=== PATIENT | female | born 1935 | race Caucasian/White ===

== ENCOUNTER 2017-01-11 16:05 | Emergency (ER) | payer MEDICARE, BC ==
--- NOTE | 2017-01-11 16:57 | Emergency Department Record ---
History of Present Illness - General Chief Complaint: Cough Stated Complaint: COUGH Time Seen by Provider: 01/11/17 16:47 Source: Patient, Family Mode of Arrival: Wheelchair Limitations: No limitations - History of Present Illness Initial Comments: 81 yo female presents with a cough. The cough started about 3 days ago. She can feel phlegm come up but she has not spit any out. She is not short of breath. No chest pain, palpitations, fever, nausea, vomiting or diarrhea. No change in her baseline leg edema. She has a history of valve replacement. She saw her chinese instructor and surgeon both in the last week. She states they pleased with current cardiac status. She had and ECHO that she was told was normal. She did have a flu shot and pneumonia shot this year. The patient weighs herself daily. Her baseline weight goes between 196 and 202. She was 196 today. She has staniding instructions to call her chinese instructor if she gains 5 pounds or exceeds her baseline. PCP is Hoda, Cardologist is Chu. LINDSEY Complaint: Cough Onset/Timin -: Days(s) Severity: Moderate Consistency: Intermittent Improves With: Nothing Worsens With: Other (Phlegm) Context: Sick contacts Associated Symptoms: Denies other symptoms, Cough Treatments Prior to Arrival: None - Related Data Home Medications Medication Instructions Recorded Confirmed Last Taken Amiodarone HCl 200 mg PO DAILY #60 01/31/16 01/11/17 1 Day Ago Apixaban [Eliquis] 2.5 mg PO BID #60 01/31/16 01/11/17 1 Day Ago Atorvastatin Calcium 40 mg PO DAILY #90 01/31/16 01/11/17 1 Day Ago Cholecalciferol (Vitamin D3) 1,000 unit PO DAILY cap 01/31/16 01/11/17 1 Day Ago [Vitamin D3] Clopidogrel Bisulfate [Clopidogrel] 75 mg PO DAILY #30 01/31/16 01/11/17 1 Day Ago Enalapril Maleate 5 mg PO DAILY #90 01/31/16 01/11/17 1 Day Ago Fenofibrate Nanocrystallized 54 mg PO DAILY #90 01/31/16 01/11/17 1 Day Ago [Fenofibrate] Ferrous Sulfate [Iron] 325 mg PO DAILY tab 01/31/16 01/11/17 1 Day Ago Furosemide 20 mg PO ASDIR #90 01/31/16 01/11/17 1 Day Ago Hydrocodone/Acetaminophen 7.5 mg PO Q6H PRN #100 01/31/16 01/11/17 1 Day Ago [Hydrocodone/Acetaminophen 7.5mg/325mg] Nystatin 30 gm TOP DAILY PRN #30 01/31/16 01/11/17 1 Day Ago Omeprazole 20 mg PO DAILY #180 NS 01/31/16 01/11/17 1 Day Ago Potassium Bicarbonate/Cit AC 10 meq PO DAILY #90 01/31/16 01/11/17 1 Day Ago [Effer-K 10 Meq Tablet Eff] Sertraline HCl 50 mg PO DAILY #90 01/31/16 01/11/17 1 Day Ago Previous Rx's Medication Instructions Recorded Doxycycline Hyclate [Doxycycline] 100 mg PO BID #14 cap 01/11/17 Allergies Allergy/AdvReac Type Severity Reaction Status Date / Time No Known Allergies Allergy Intermediate PT UNSURE Verified 01/11/17 16:37 OF REACTION Travel Screening - Travel/Exposure Within Last 30 Days Have you traveled within the last 30 days?: No - Travel/Exposure Within Last Year Have you traveled outside the [place] in the last year?: No - Additonal Travel Details Have you been exposed to anyone with a communicable illness?: No - Travel Symptoms Symptom Screening: None Review of Systems Constitutional: Denies: Chills, Fever, Malaise, Night sweats, Weakness Eyes: Denies: Eye discharge, Eye pain, Photophobia, Vision change ENT: Reports: Congestion. Denies: Ear pain, Epistaxis, Throat pain Respiratory: Reports: Cough. Denies: Dyspnea, Hemoptysis, Stridor, Wheezes Cardiovascular: Reports: Edema (chronic, unchanged at baseline). Denies: Arrhythmia, Chest pain, Dyspnea on exertion, Palpitations, Syncope Endocrine: Denies: Fatigue, Polydipsia, Polyuria Gastrointestinal: Denies: Abdominal pain, Diarrhea, Nausea, Vomiting Genitourinary: Denies: Dysuria, Urgency Musculoskeletal: Denies: Arthralgia, Back pain, Joint swelling, Neck pain Skin: Denies: Bruising, Change in color, Rash Neurological: Denies: Confusion, Headache, Numbness, Weakness Psychiatric: Denies: Anxiety Hematological/Lymphatic: Denies: Blood Clots, Easy bleeding, Easy bruising, Swollen glands Past Medical History - SOCIAL HISTORY Smoking Status: Never smoker Alcohol Use: None Drug Use: None - RESPIRATORY Hx Respiratory Disorders: No Hx Sleep Apnea: Yes Hx of CPAP: Yes (not any more) - CARDIOVASCULAR Hx Cardio Disorders: Yes Hx Cardiac Cath: Yes Hx Hypertension: Yes - NEURO Hx Neuro Disorders: No - GI Hx GI Disorders: No - Hx Genitourinary Disorders: No - ENDOCRINE Hx Endocrine Disorders: No - MUSCULOSKELETAL Hx Musculoskeletal Disorders: Yes - PSYCH Hx Psych Problems: No - HEMATOLOGY/ONCOLOGY Hx Hematology/Oncology Disorders: Yes Hx Cancer: Yes (1997, 2003 breast) Hx Radiation Therapy: Yes Family Medical History Any Significant Family History?: Yes Physical Exam - General General Appearance: Alert, Oriented x3, Cooperative, No acute distress Limitations: No limitations - Head Head exam: Normal inspection - Eye Eye exam: Normal appearance, PERRL. negative: Conjunctival injection - ENT ENT exam: Normal exam, Mucous membranes moist, Normal orophraynx Ear exam: Normal external inspection. negative: External canal tenderness Nasal Exam: Discharge. negative: Normal inspection, Sinus tenderness Mouth exam: Normal external inspection, Tongue normal Teeth exam: Normal inspection. negative: Dental caries Throat exam: Normal inspection. negative: Tonsillar erythema, Tonsillar exudate - Neck Neck exam: Normal inspection, Full ROM. negative: Tenderness - Respiratory Respiratory exam: Rhonchi (few scattered mild rhonchi). negative: Normal lung sounds bilaterally, Accessory muscle use, Decreased breath sounds, Rales, Respiratory distress, Stridor, Wheezes - Cardiovascular Cardiovascular Exam: Regular rate, Normal rhythm, Normal heart sounds Peripheral Pulses: 2+: Radial (R), Radial (L) - Rectal Rectal exam: Deferred - exam: Deferred - Extremities Extremities exam: Normal inspection, Normal capillary refill, Pedal edema (mild , trace) - Back Back exam: Reports: Normal inspection, Full ROM. Denies: Muscle spasm, Rash noted, Tenderness - Neurological Neurological exam: Alert, Normal gait, Oriented X3, Reflexes normal - Psychiatric Psychiatric exam: Normal affect, Normal mood - Skin Skin exam: Dry, Intact, Normal color, Warm Course Vital Signs 01/11/17 16:26 Temperature 98.2 F Pulse Rate 73 Respiratory 18 Rate Blood Pressure 87/38 Pulse Ox 94 L - Reevaluation(s) Reevaluation #1: The ECHO was requested and recieved from [facility] Summary: moderate LVH, EF 40-45%, stage 1 diastolic dysfunction, moderate mitral calcification, +1 mitral regurge, midl Tricuspid insufficiency, lee- scatheter AVR in place, gradient abnormal for prosthetic AV. 01/11/17 17:04 Reevaluation #2: The patient appears well, non labored, with a mild cough with phlegm. Her BP was noted. She is on numerous medications that effect BP but she is asymptomatic here in the ED and by history at home. 01/11/17 17:07 Reevaluation #3: EKG Sinus rhythm, rate 69, Qt 486, axis left, LBBB, NS changes CW BBBB, no changes from prior 08/15/06 01/11/17 17:31 01/11/17 18:14 Reevaluation #4: The labs were reviewed. No acute changes on the CBC The BUN and CR are 47 and 1.1. These are near the base of 43 and 1.0 on December 21. CXR read was suggestive mild CHF no effusions, BNP 3770 The patient is at the low end of her weight this morning at 196. She clinically on exam is not in overt CHF We discussed continuing her current medications, close follow up and return if worse. 01/11/17 18:14 01/11/17 18:34 Medical Decision Making - Lab Data Result diagrams: 01/11/17 17:02 01/11/17 17:28 Disposition Disposition: Discharge Clinical Impression: Bronchitis Disposition: Home, Self-Care Condition: (1) Good Instructions: Acute Bronchitis (ED) Additional Instructions: Immediately return if worse, fever, short of breath Call your doctors for a recheck first of the week Doxyclycline twice daily for one week Weight yourself daily Return if you gain weight of more that 5 pounds Prescriptions: Doxycycline Hyclate [Doxycycline] 100 mg PO BID #14 cap Forms: Patient Portal Access Time of Disposition: 18:18
[2017-01-11 17:11] LABS: HEMATOCRIT 39.4 % (35.0-47.0); HEMOGLOBIN 12.7 gm/dl (11.6-16.0); MEAN CELL VOLUME 100.3 fl (81-97); MEAN CORPUSCULAR HEMOGLOBIN 32.3 pg (27-33); MEAN CORPUSCULAR HGB CONC 32.2 g/dl (32-36); MEAN PLATELET VOLUME 10.7 fl (7.4-10.4); PLATELET COUNT 157 K/uL (130-400); RED BLOOD COUNT 3.93 M/uL (3.80-5.40); RED CELL DISTRIBUTION WIDTH 14.3 % (11.5-14.5)
[2017-01-11 17:23] LABS: INR 1.19; PARTIAL THROMBOPLASTIN TIME 28.6 SECONDS (24.5-39.1); PROTHROMBIN TIME (PATIENT) 13.4 SECONDS (9.5-12.1)
[2017-01-11 17:25] LABS: INFLUENZA A NEGATIVE (NEGATIVE); INFLUENZA B NEGATIVE (NEGATIVE)
[2017-01-11 17:33] LABS: PLATELET ESTIMATE NORMAL (NORMAL)
[2017-01-11 18:04] LABS: ALB/GLOB RATIO 1.3 (1.1-1.8); ALBUMIN 3.8 gm/dL (3.5-5.0); ANION GAP 6.4 (7-16); BILIRUBIN,TOTAL 0.71 mg/dL (0.2-1.3); CARBON DIOXIDE 29.6 mmol/L (22-30); CREATININE 1.1 mg/dL (0.52-1.04); TOTAL PROTEIN 6.7 gm/dL (6.3-8.2)
[2017-01-11] MEDS ORDERED: DOXYCYCLINE HYCLATE 100 MG CAPSULE PO ONE (18:19)
--- NOTE | 2017-01-15 14:34 | RADIOLOGY REPORT ---
EXAM: CHEST, TWO VIEWS HISTORY: PATIENT HAS A COUGH. TECHNIQUE: Two views of the chest are provided along with the comparison study dated 02/04/15. FINDINGS: Cardiomegaly is identified. In the interval there has been placement of an aortic stent graft. Tortuosity and ectasia of the thoracic aorta is noted. Pulmonary vascular equalization is identified. Mild interstitial prominence is noted. These findings suggest congestive heart failure. Clinical correlation is recommended. No focal consolidation or pleural effusions are identified. IMPRESSION: FINDINGS SUGGESTIVE OF MILD CONGESTIVE HEART FAILURE. NO FOCAL CONSOLIDATION OR PLEURAL EFFUSIONS ARE IDENTIFIED. NO PNEUMOTHORAX IS NOTED. FOLLOW-UP PA AND LATERAL VIEWS OF THE CHEST CAN BE OBTAINED IF CLINICALLY INDICATED. JOB NUMBER: [id number] MTDD
== END 2017-01-11 18:44 | disposition home or self-care (01) ==
LOC: ER 16:05
DX: J20.9 Acute bronchitis, unspecified (principal); I10 Essential (primary) hypertension; Z79.01 Long term (current) use of anticoagulants; Z95.2 Presence of prosthetic heart valve
CPT/HCPCS: 71020; 80053; 83880; 85027; 85610; 85730; 87400; 93005; 93010; 99284

== ENCOUNTER 2018-11-15 16:46 | Emergency (ER) | payer MEDICARE, BC ==
--- NOTE | 2018-11-15 17:29 | Emergency Department Record ---
History of Present Illness - General Chief complaint: Extremity Problem Stated complaint: LEG PAIN Time Seen by Provider: 11/15/18 17:03 Source: Patient, Family Mode of Arrival: Wheelchair Limitations: No limitations - History of Present Illness Initial comments: The patient is here due to possibly having a rash to the R medial thigh earlier today that was similar to when she had cellulitis in the past. She denies any pain, itching, swelling or any new medicines. MD Complaint: Other Onset/Timin -: Days(s) Location: Right, Lower Leg, Thigh History of Same: Yes (2014) - Related Data Home Medications Medication Instructions Recorded Confirmed Last Taken Hydrocodone/Acetaminophen [[place] 1 each PO BID PRN 11/15/18 11/15/18 11/15/18 5-325 Tablet] Rosuvastatin Calcium [Crestor] 10 mg PO DAILY 11/15/18 11/15/18 11/14/18 Allergies Allergy/AdvReac Type Severity Reaction Status Date / Time No Known Allergies Allergy Intermediate PT UNSURE Verified 01/11/17 16:37 OF REACTION Travel Screening - Travel/Exposure Within Last 30 Days Have you traveled within the last 30 days?: No - Travel/Exposure Within Last Year Have you traveled outside the [place] in the last year?: No - Additonal Travel Details Have you been exposed to anyone with a communicable illness?: No - Travel Symptoms Symptom Screening: None Review of Systems Constitutional: Denies: Chills, Fever Eyes: Denies: Eye discharge ENT: Denies: Congestion Respiratory: Denies: Cough, Dyspnea Past Medical History - SOCIAL HISTORY Smoking Status: Never smoker Alcohol Use: None Drug Use: None - RESPIRATORY Hx Respiratory Disorders: No Hx Sleep Apnea: Yes Hx of CPAP: Yes (not any more) - CARDIOVASCULAR Hx Cardio Disorders: Yes Hx Cardiac Cath: Yes Hx Hypertension: Yes - NEURO Hx Neuro Disorders: No - GI Hx GI Disorders: No - Hx Genitourinary Disorders: No - ENDOCRINE Hx Endocrine Disorders: No - MUSCULOSKELETAL Hx Musculoskeletal Disorders: Yes - PSYCH Hx Psych Problems: Yes Hx Depression: Yes - HEMATOLOGY/ONCOLOGY Hx Hematology/Oncology Disorders: Yes Hx Cancer: Yes (1997, 2003 breast) Hx Radiation Therapy: Yes Family Medical History Any Significant Family History?: Yes Hx Cancer: Grandparents Hx Heart Disease: Father, Brother/Sister Physical Exam - General General Appearance: Alert, Oriented x3, Cooperative, No acute distress - Head Head exam: Atraumatic, Normocephalic, Normal inspection - Eye Eye exam: Normal appearance, PERRL - Neck Neck exam: Normal inspection, Full ROM. negative: Tenderness - Respiratory Respiratory exam: Normal lung sounds bilaterally. negative: Respiratory distress - Cardiovascular Cardiovascular Exam: Regular rate, Normal rhythm, Normal heart sounds - GI/Abdominal GI/Abdominal exam: Soft, Normal bowel sounds. negative: Tenderness - Extremities Extremities exam: Normal inspection (The legs appear normal at this time. There is no rash, erythema, warmth or tenderness appreciated. ), Full ROM, Normal capillary refill. negative: Calf tenderness, Joint swelling, Tenderness Course Vital Signs 11/15/18 16:48 Temperature 98.4 F Pulse Rate 82 Respiratory 18 Rate Blood Pressure 154/86 Pulse Ox 96 - Reevaluation(s) Reevaluation #1: I did discuss the skin changes with the patient's daughter and did examine the legs with her. She even agrees that the rash is now gone and the legs appear normal. We will order some lab work to double check for infection and will discharge if neg. 11/15/18 17:28 Reevaluation #2: The patient is doing very well at this time. I again did discuss the fact that I do not believe the patient has a skin infection. She is to continue her regular medicines and return to the ER for any problems. 11/15/18 17:55 Medical Decision Making - Data Complexity MDM Data: Labs Ordered and/or Reviewed - Lab Data Result diagrams: 11/15/18 17:35 11/15/18 17:35 Disposition Disposition: Discharge Clinical Impression: Skin rash Disposition: Home, Self-Care Condition: (2) Stable Instructions: Acute Rash (ED) Additional Instructions: Please continue your regular medicines and see your family doctor for any problems if needed. Return to the ER for any worsening symptoms. Forms: Patient Portal Access Time of Disposition: 17:56 Quality - Quality Measures Quality Measures: N/A - Blood Pressure Screening View Details: Yes Does Patient Have Any of the Following: No Blood Pressure Classification: Pre-Hypertensive BP Reading Systolic Measurement: 154 Diastolic Measurement: 86 Screening for High Blood Pressure: < Pre-Hypertensive BP, F/U Documented > [ [id number]] Pre-Hypertensive Follow-up Interventions: Referral to alternative/primary care provider.
[2018-11-15 17:44] LABS: BASO % 0.3 % (0-6); EOS % 3.3 % (0-6); GRAN % 56.6 % (47-80); HEMATOCRIT 39.5 % (35.0-47.0); HEMOGLOBIN 12.5 gm/dl (11.6-16.0); LYMPH % 27.3 % (16-45); MEAN CELL VOLUME 99.5 fl (81-97); MEAN CORPUSCULAR HEMOGLOBIN 31.5 pg (27-33); MEAN CORPUSCULAR HGB CONC 31.6 g/dl (32-36); MEAN PLATELET VOLUME 10.1 fl (7.4-10.4); MONO % 12.5 % (0-9); PLATELET COUNT 142 K/uL (130-400); RED BLOOD COUNT 3.97 M/uL (3.80-5.40); RED CELL DISTRIBUTION WIDTH 14.3 % (11.5-14.5); WHITE BLOOD COUNT W/O DIFF 6.1 K/uL (4.2-12.2)
[2018-11-15 18:04] LABS: BLOOD UREA NITROGEN 31 mg/dL (8-23); CREATININE 0.7 mg/dL (0.5-0.9); EST GLOMERULAR FILTRATION RATE > 60 mL/min
[2018-11-15 18:07] LABS: GLUCOSE,RANDOM 88 mg/dL (74-109)
[2018-11-15 18:10] LABS: C-REACTIVE PROTEIN 0.38 mg/dL (<0.5)
== END 2018-11-15 18:17 | disposition home or self-care (01) ==
LOC: ER 16:46
DX: R21 Rash and other nonspecific skin eruption (principal); I10 Essential (primary) hypertension
CPT/HCPCS: 80048; 85025; 86140; 99283